=== PATIENT | male | born 1930 ===

== ENCOUNTER 2017-09-12 05:50 | Inpatient (IN) | payer BC ==
[2017-09-12] MEDS ORDERED: PROPOFOL 200 MG INJ (07:00)
[2017-09-12] MEDS ORDERED: LIDOCAINE 2% (SDV) 5 ML INJ (07:00)
[2017-09-12] MEDS ORDERED: ONDANSETRON 4 MG INJ (07:00)
[2017-09-12] MEDS ORDERED: BACITRACIN/POLYMYXIN 28.35 GM OINT TOP (07:24)
[2017-09-12] MEDS ORDERED: LIDOCAINE 0.5% (MDV) 50 ML INJ (07:25)
[2017-09-12] MEDS ORDERED: DEXAMETHASONE 4 MG/ML 1 ML INJ (07:54)
[2017-09-12] MEDS ORDERED: PHENYLephrine (100 MCG/ML) 5ML SYG (07:54)
[2017-09-12] MEDS ORDERED: MIDAZOLAM 1 MG/ML 2 ML INJ (08:19)
[2017-09-12] MEDS: BUPIVACAINE 0.5%/EPI (SDV) 30 ML INJ (08:50)
[2017-09-12] MEDS ORDERED: MINERAL OIL LIGHT 10 ML VIAL (08:52)
[2017-09-12] MEDS: MANNITOL 25% 50 ML INJ IV (09:00)
[2017-09-12] MEDS: DEXAMETHASONE 10 MG/ML 1 ML INJ IV ×4 (09:00→23:31)
[2017-09-12] MEDS: LEVETIRACETAM 1000 MG (PMX) 100 ML IVPB (09:00)
[2017-09-12] MEDS: SURGIFOAM POWDER 1 GM KIT ×2 (10:00→11:02)
[2017-09-12] MEDS: THROMBIN 5000 UNIT VIAL ×2 (11:01→11:02)
[2017-09-12] MEDS: GELATIN SIZE 100 SPONGE (11:01)
[2017-09-12] MEDS: POLYMYXIN/BACITRACIN 1L IRRIG (11:03)
[2017-09-12] MEDS ORDERED: THROMBIN 5000 UNIT VIAL (12:03)
[2017-09-12] MEDS ORDERED: BISACODYL 10 MG SUPP PR (15:00)
[2017-09-12] MEDS ORDERED: ONDANSETRON 4 MG INJ IV (15:00)
[2017-09-12] MEDS ORDERED: NALOXONE (0.4 MG/ML) INJ IV (15:00)
[2017-09-12] MEDS ORDERED: HYDROCODONE/APAP (5/325) TAB PO (15:00)
[2017-09-12 15:28] LABS: ADD MAN DIFF? NO
[2017-09-12 15:31] LABS: WHITE BLOOD COUNT 11.6 10^3/ul (4.8-10.8)
[2017-09-12 15:31] LABS: BASOPHILS % 0.2 % (0.0-2.0); HEMATOCRIT 37.3 % (42.0-52.0); HEMOGLOBIN 12.1 g/dl (14.0-18.0); LYMPHOCYTES # 0.7 10^3/ul (0.8-2.9); MEAN CORPUSCULAR HGB CONC 32.4 g/dl (32.0-37.0); MEAN CORPUSCULAR VOLUME 83.3 fl (82.0-101.0); MEAN PLATELET VOLUME 8.6 fl (7.4-10.4); MONOCYTE # 0.3 10^3/ul (0.3-0.9); MONOCYTES % 2.9 % (0.0-11.0); NEUTROPHILS % 86.6 % (39.0-77.0); PLATELET COUNT 248 10^3/UL (140-415); RED BLOOD COUNT 4.48 10^6/ul (4.70-6.10); RED CELL DISTRIBUTION WIDTH 20.4 % (11.5-14.5)
[2017-09-12 15:57] LABS: ANION GAP 11 (8-16); BLOOD UREA NITROGEN 20 mg/dl (7-20); CALCIUM 8.7 mg/dl (8.4-10.2); CARBON DIOXIDE 26 mmol/L (21-31); CHLORIDE 103 mmol/L (97-110); CREATININE 0.61 mg/dl (0.61-1.24); GLUCOSE 139 mg/dl (70-220); POTASSIUM 4.6 mmol/L (3.5-5.1); SODIUM 135 mmol/L (135-144)
[2017-09-12] MEDS: CEFAZOLIN 1 GM/50 ML (PMX) 50 ML IVPB ×2 (16:54→23:31)
[2017-09-12] MEDS: NS + KCL 20 MEQ 1,000 ML IV (16:55)
[2017-09-12] MEDS: LEVETIRACETAM 500 MG (PMX) 100 ML IVPB ×2 (18:08→21:23)
[2017-09-12] MEDS: DOCUSATE SODIUM 100 MG CAP PO (21:23)
[2017-09-12] MEDS: NEOMYC/POLYMYX/BACIT 30 GM OINT TOP (21:23)
[2017-09-12] MEDS: HYDROmorphONE 0.5 MG/0.5 ML SYG IV (21:56)
[2017-09-13] MEDS: NS + KCL 20 MEQ 1,000 ML IV ×3 (04:00→20:34)
[2017-09-13 05:55] LABS: ADD MAN DIFF? NO
[2017-09-13 06:02] LABS: BASOPHILS % 0.3 % (0.0-2.0); HEMATOCRIT 36.7 % (42.0-52.0); LYMPHOCYTES # 0.8 10^3/ul (0.8-2.9); LYMPHOCYTES % 5.3 % (15.0-51.0); MEAN CORPUSCULAR HEMOGLOBIN 27.2 pg (29.0-33.0); MEAN CORPUSCULAR HGB CONC 32.7 g/dl (32.0-37.0); MEAN CORPUSCULAR VOLUME 83.2 fl (82.0-101.0); MEAN PLATELET VOLUME 8.9 fl (7.4-10.4); MONOCYTES % 6.5 % (0.0-11.0); NEUTROPHIL # 13.4 10^3/ul (1.6-7.5); NEUTROPHILS % 85.8 % (39.0-77.0); PLATELET COUNT 247 10^3/UL (140-415); RED BLOOD COUNT 4.41 10^6/ul (4.70-6.10); RED CELL DISTRIBUTION WIDTH 20.8 % (11.5-14.5)
[2017-09-13 06:02] LABS: WHITE BLOOD COUNT 15.6 10^3/ul (4.8-10.8)
[2017-09-13 06:18] LABS: ANION GAP 12 (8-16); BLOOD UREA NITROGEN 23 mg/dl (7-20); CALCIUM 8.6 mg/dl (8.4-10.2); CARBON DIOXIDE 27 mmol/L (21-31); CHLORIDE 103 mmol/L (97-110); GLUCOSE 121 mg/dl (70-220); SODIUM 137 mmol/L (135-144)
[2017-09-13] MEDS: CEFAZOLIN 1 GM/50 ML (PMX) 50 ML IVPB (06:19)
[2017-09-13] MEDS: PANTOPRAZOLE 40 MG INJ IV (06:23)
[2017-09-13] MEDS: DEXAMETHASONE 10 MG/ML 1 ML INJ IV ×3 (06:30→18:40)
[2017-09-13] MEDS: NEOMYC/POLYMYX/BACIT 30 GM OINT TOP ×3 (08:56→22:11)
[2017-09-13] MEDS: LEVETIRACETAM 500 MG (PMX) 100 ML IVPB ×2 (08:56→20:33)
[2017-09-13] MEDS: DOCUSATE SODIUM 100 MG CAP PO ×2 (08:57→20:34)
[2017-09-13] MEDS: LEVETIRACETAM 1000 MG (PMX) 100 ML IVPB (08:59)
[2017-09-13] MEDS ORDERED: ALBUTEROL HFA 8 GM INHALER INH (10:30)
[2017-09-14] MEDS: DEXAMETHASONE 10 MG/ML 1 ML INJ IV ×4 (00:51→17:17)
[2017-09-14] MEDS: NS + KCL 20 MEQ 1,000 ML IV ×3 (03:00→16:40)
[2017-09-14] MEDS: PANTOPRAZOLE 40 MG INJ IV (06:29)
[2017-09-14] MEDS: DOCUSATE SODIUM 100 MG CAP PO ×2 (08:45→21:12)
[2017-09-14] MEDS: LEVETIRACETAM 500 MG (PMX) 100 ML IVPB ×2 (08:45→21:12)
[2017-09-14] MEDS: NEOMYC/POLYMYX/BACIT 30 GM OINT TOP ×3 (08:45→21:13)
[2017-09-15] MEDS: DEXAMETHASONE 10 MG/ML 1 ML INJ IV ×5 (00:48→23:49)
[2017-09-15] MEDS: NS + KCL 20 MEQ 1,000 ML IV (02:31)
[2017-09-15] MEDS: PANTOPRAZOLE 40 MG INJ IV (05:54)
[2017-09-15] MEDS: LEVETIRACETAM 500 MG (PMX) 100 ML IVPB ×2 (08:58→21:57)
[2017-09-15] MEDS: DOCUSATE SODIUM 100 MG CAP PO ×2 (08:58→21:10)
[2017-09-15] MEDS: NEOMYC/POLYMYX/BACIT 30 GM OINT TOP ×3 (08:59→21:00)
[2017-09-15] MEDS: BARIUM SULFATE 135 ML (E-Z HD) PO (10:00)
[2017-09-15] MEDS: FERROUS SULFATE (EC) 325 MG TAB PO (21:10)
[2017-09-15] MEDS: TAMSULOSIN (SR) 0.4 MG CAP PO (21:10)
[2017-09-15] MEDS: ATORVASTATIN 10 MG TAB PO (21:10)
[2017-09-16] MEDS: PANTOPRAZOLE (EC) 40 MG TAB PO (05:43)
[2017-09-16] MEDS: DEXAMETHASONE 10 MG/ML 1 ML INJ IV (05:43)
[2017-09-16] MEDS: LEVOTHYROXINE 25 MCG TAB PO (06:03)
[2017-09-16] MEDS: NEOMYC/POLYMYX/BACIT 30 GM OINT TOP ×2 (09:09→12:46)
[2017-09-16] MEDS: DOCUSATE SODIUM 100 MG CAP PO (09:09)
[2017-09-16] MEDS: FERROUS SULFATE (EC) 325 MG TAB PO (09:09)
[2017-09-16] MEDS: LEVETIRACETAM 500 MG (PMX) 100 ML IVPB (11:53)
[2017-09-16] MEDS: DEXAMETHASONE 4 MG TAB PO ×2 (12:46→18:24)
[2017-09-16] MEDS ORDERED: LEVETIRACETAM 500 MG TAB PO (21:00)
== END 2017-09-16 19:15 | DRG 26 ==
LOC: REC 05:50 → MS4 09-13 16:00 → MS1 09-15 12:20 → ICU 13:45 → MS1 09-15 14:03
PROC: 00B00ZZ Excision of Brain, Open Approach (ICD-10-PCS; principal; 2017-09-12 07:30)
PROC: 8E09XBH Computer Assisted Procedure of Head and Neck Region, With Magnetic Resonance Imaging (ICD-10-PCS; 2017-09-12 07:30)
DX: C71.9 Malignant neoplasm of brain, unspecified (principal); G81.94 Hemiplegia, unspecified affecting left nondominant side; R29.810 Facial weakness; R47.1 Dysarthria and anarthria; I25.10 Atherosclerotic heart disease of native coronary artery without angina pectoris; E03.9 Hypothyroidism, unspecified; N40.0 Benign prostatic hyperplasia without lower urinary tract symptoms; D50.9 Iron deficiency anemia, unspecified; E78.5 Hyperlipidemia, unspecified; K21.9 Gastro-esophageal reflux disease without esophagitis; Z90.49 Acquired absence of other specified parts of digestive tract; R13.10 Dysphagia, unspecified; Z87.891 Personal history of nicotine dependence; Z95.1 Presence of aortocoronary bypass graft
CPT/HCPCS: 70450; 70553; 74230; 80048; 85025; 86850; 86870; 86900; 86901; 88307; 88331; 88341; 88342; 92526; 92610; 92611; 97110; 97163; 97165; 97530